=== PATIENT | male | born 1960 | race Asian ===

== ENCOUNTER 2022-11-30 14:36 | Emergency (ER) | payer OTHER ==
[~2022-11-30] VITALS: Ht 175.3 cm; Wt 59.0 kg
[~2022-11-30 14:36] MED LIST: CLOZAPINE ODT12.5 MG PO
[2022-11-30 14:38] VITALS: BP 104/67; TEMP 98.3
[2022-11-30 15:11] LABS: PLATELET COUNT 304 K/uL (142-355)
[2022-11-30 15:19] LABS: POTASSIUM 3.4 mmol/L (3.6-5.2)
[2022-12-02] MEDS ORDERED: MULTIVITAMIN1 TA1 PO (10:31)
[2022-12-02] MEDS ORDERED: STOOL SOFTNR100 M1 PO (10:33)
[2022-12-02] MEDS ORDERED: LAMICTAL200 MG PO (10:34)
[2022-12-02] MEDS ORDERED: EUTHYROX50 MCG PO (10:36)
[2022-12-02] MEDS ORDERED: ATOR20TA2 PO (10:37)
[2022-12-02] MEDS ORDERED: LITHIUM CARB300 M1 PO (10:41)
[2022-12-02] MEDS ORDERED: OMEPRAZOLE +2 MG/ML PO (10:43)
[2022-12-06] MEDS ORDERED: LAMO100T PO (16:57)
[2022-12-06] MEDS ORDERED: DOCU100C10 PO (16:57)
[2022-12-06] MEDS ORDERED: Atorvastatin Calcium PO (16:57)
[2022-12-06] MEDS ORDERED: LEVO0.0529 PO (16:57)
[2022-12-06] MEDS ORDERED: LITH300C3 PO (16:58)
[2022-12-06] MEDS ORDERED: PANTOPRAZOLE 40MG TA PO (16:58)
== END 2022-11-30 15:55 | disposition other institution (70) ==
LOC: ED 14:36
PROVIDERS: Family Medicine
DX: Z04.6 Encounter for general psychiatric examination, requested by authority (principal); F03.911 Unspecified dementia, unspecified severity, with agitation; I10 Essential (primary) hypertension; E78.5 Hyperlipidemia, unspecified; F20.9 Schizophrenia, unspecified
CPT/HCPCS: 80053; 81002; 85027; 87635; 99283; U0003